=== PATIENT | male | born 1955 | race Caucasian/White ===

== ENCOUNTER 2017-12-21 12:02 | Observation (INO) ==
[~2017-12-21 12:02] MED LIST: Glycopyrrolate Inj 1 MG/5 ML Syringe IV.PUSH ONE; Lidocaine PF 1% Inj 5 ML Syringe INFILTRATN ONE; Neostigmine Inj 5 MG/5 ML Syringe IV.PUSH ONE; Phenylephrine/NS 1000 MCG/10ML Syringe IV.PUSH ONE
[2017-12-21] MEDS ORDERED: Metoprolol Tartrate 25 MG Tablet PO SCH (13:00)
[2017-12-21] MEDS ORDERED: Sodium Chlor 0.9% Inj 500 ML IV.SIG SCH (13:00)
[2017-12-21] MEDS ORDERED: Chlorhexidine Gluconate 2% 1 Pack (2 Cloths) TOPICAL SCH (13:00)
[2017-12-21] MEDS ORDERED: Lidocaine 1%/Epinephrine 1:100,000 Inj 30 ML Vial ONE (16:32)
[2017-12-21] MEDS ORDERED: Thrombin Topical Soln 5,000 UNIT Vial TOPICAL ONE (16:32)
[2017-12-21] MEDS ORDERED: Gelatin Size 100 Topical Foam ONE (16:32)
[2017-12-21] MEDS ORDERED: ceFAZolin 2 GM Premix Inj 2 GM/50 ML PIGGYBACK IV.SIG ONE (16:37)
[2017-12-21] MEDS ORDERED: Bupivacaine Liposomal PF 1.3% Inj 20 ML Vial INFILTRATN ONE (19:13)
[2017-12-21] MEDS ORDERED: fentaNYL Citrate Inj 100 MCG/2 ML Ampul ONE (20:07)
--- NOTE | 2017-12-21 20:11 | XR ---
EXAM DATE: 12/21/2017 7:51 PM EDT AGE/SEX: 62 years / Male INDICATIONS: Level localization for laminectomy L5,S1. CLINICAL DATA: This is the patient's initial encounter. Patient reports that signs and symptoms have been present for 1 day and indicates a pain score of Nonresponsive. MEDICAL/SURGICAL HISTORY: Non-responsive. Non-responsive. COMPARISON: No prior exams available for comparison. FINDINGS: A single lateral view of the lower lumbar region was performed digitally in the operating room using C-arm. Retractor and localization probe in place. CONCLUSION: Intraoperative images. Electronically signed by: Lemuel Elias MD 12/21/2017 8:09 PM EDT
[2017-12-21] MEDS ORDERED: *morphine SULFATE 10 MG/ML PERIprocedure ONLY ONE (20:19)
--- NOTE | 2017-12-21 20:35 | P.OP ---
- Preoperative Diagnosis (1) Lumbar radiculopathy (2) Lumbar foraminal stenosis (3) Lumbar canal stenosis - Postoperative Diagnosis (1) Lumbar radiculopathy (2) Lumbar foraminal stenosis (3) Lumbar canal stenosis Date of procedure: 12/21/17 Procedure: Left L5-S1 decompressive semi-laminectomy, medial facetectomy and foraminotomy Anesthesia: GETA Surgeon: Adiel Sung MD Engineering Director: Salvador Jimenez Estimated blood loss (mL): 50 Operation and Findings: Indications: 62-year-old male with chronic severe left L5 distribution radiculopathy, imaging findings with severe left L5-S1 foraminal and lateral recess stenosis. Findings: Severe left L5-S1 foraminal stenosis, facet and ligament hypertrophy. Procedure in detail: The patient was brought into the operating room and general endotracheal anesthesia induced without difficulty. NEMO hose and sequential compression devices were placed. The Arredondo catheter was placed. Lines were established by anesthesia. The patient was positioned on the concentric Armando table with the side bolsters and all extremities appropriately padded. Appropriate time-out procedure was performed with all personnel present and in agreement. 1% Xylocaine with epinephrine was used for local infiltration over the incision site which was made just to the of midline at the level. The incision was carried sharply down to the lumbodorsal fascia which was incised adjacent to the spinous processes. Clayton elevator was used for subperiosteal elevation of paraspinous musculature and fascia away from the lamina and spinous process. The deep self-retaining retractor was placed. The appropriate levels were verified with intraoperative C-arm. Microscope was moved into place and used for the remainder of the procedure including the closure. At the L5-S1 level starting on the right side then working across the midline to the opposite side, the TPS drill with a 5 mm bone bur followed by the 4 mm alon bur was used to remove the inferior two thirds of the central to left L5 lamina and medial facet, taking care not to disrupt the integrity of the facet or pars intra-articularis. The hypertrophied ligamentum flavum was elevated away from the thecal sac with the thin ligament dissector and resected with the 15 blade knife and the Kerrison rongeur out to the level of the left deep lateral recess to completely decompress the thecal sac and exiting nerve roots. The exiting left L5 and S1 nerve roots were followed to the level of the corresponding medial pedicle to ensure that they were well decompressed in the canal. The superior aspect of the superior left S1 facet was then removed with the TPS drill with a 4 mm alon bur followed by the straight and angled 2 mm Kerrison rongeurs to perform the left L5-S1 foraminotomy. The exiting left L5 nerve root was located as it coursed around the inferior medial left L5 pedicle, and followed out to the far lateral left L5-S1 foramen and any bone or ligamentous structures compressing the nerve were fully decompressed. The long blunt nerve hook was used to probe out the foramen to make sure that there was adequate foraminotomy. The left L5-S1 annulus was inspected. There was a mild posterior osteophytic disc complex which did not appear to be causing significant compression on the thecal sac or exiting L5 or S1 nerve roots. It was elected not to perform a discectomy. The nerve roots appeared well decompressed at the end of the procedure. No spinal fluid leakage was encountered. The disc and annulus at each level was visualized to make sure that there was no significant disc displacement or herniation. Bleeding was carefully controlled with the bipolar forceps. The closure was performed with 0 Vicryl interrupted for the deep and superficial fascia, with 3-0 Vicryl interrupted subcutaneous closure, and 4-0 Vicryl running subcuticular closure. A dressing of sterile Mastisol, Steri- Strips, and Primapore was placed. The patient was taken to recovery room in stable condition. All counts were correct at the end of the case. Estimated blood loss was 50 cc. No specimen was sent to pathology
[2017-12-21] MEDS ORDERED: Bisacodyl 10 MG Supp RECTAL PRN (20:36)
[2017-12-21] MEDS ORDERED: Morphine Inj 4 MG/ML Vial IV.PUSH PRN (22:00)
[2017-12-22] MEDS: Senna/Docusate Sodium 8.6/50 MG Tablet PO SCH ×2 (02:56→10:53)
[2017-12-22 05:37] VITALS: BP 150/77; PULSE 66; TEMP 97.9; O2SAT 96
[2017-12-22] MEDS ORDERED: Lisinopril 20 MG Tablet PO SCH (09:00)
[2017-12-22] MEDS ORDERED: amLODIPine 10 MG Tablet PO SCH (09:00)
[2017-12-22 10:53] VITALS: RESP 15
== END 2017-12-22 11:15 | disposition home or self-care (01) ==
LOC: N06 12:02 → HOR 12:02 → N06 20:54 → HPAC 20:58 → N06 21:31
PROVIDERS: ADMIT Neurological Surgery; ATTEND Neurological Surgery